=== PATIENT | male | born 1960 | race Caucasian/White ===

== ENCOUNTER 2017-07-04 13:11 | Inpatient (IN) | payer SELFPAY ==
[~2017-07-04] VITALS: Ht 188 cm; Wt 109.8 kg
[2017-07-04] VITALS (7 sets, daily range): BP systolic 136–177; BP diastolic 86–110
[2017-07-04] MEDS ORDERED: XARELTO20 MG ORAL (13:34)
[2017-07-04] MEDS ORDERED: Morphine Sulfate 2mg/ml Inj IVP ONE (13:45)
--- NOTE | 2017-07-04 13:49 | Emergency Room Report ---
History of Present Illness General Chief Complaint: Chest Pain Source: Patient Present Illness HPI 56-year-old male presents with left-sided chest pain, nonradiating, while he was on the plane on flight back to [place] from [place]. No associated shortness of breath, cough, fever chills. States he makes that flight every week for work. Endorses history of "11 PEs" in the past, is compliant with 20 mg Xarelto daily. Also endorses multiple CTA chest. Denies having a chance to follow up with car dropper, but thinks he "has a blood disorder", hasn't had a chance to follow-up due to work. Denies history of diabetes, high blood pressure, CAD, heart attacks in the past. Denies smoking, alcohol, drug use. Allergies: Coded Allergies: No Known Allergies (Unverified , 07/04/17) Patient History Past Medical History: other - PE? Past Surgical History: none Pertinent Family History: none Social History: Denies: smoking, alcohol use, drug use Immunizations: UTD Reviewed Nursing Documentation: PMH: Agreed, PSxH: Agreed Nursing Documentation-PMH Past Medical History: No History, Except For Hx Cardiac Problems: No - PE 2016 Review of Systems All Other Systems: negative except mentioned in HPI Physical Exam Vital Signs Date Time Temp Pulse Resp B/P (MAP) Pulse Ox O2 Delivery O2 Flow Rate FiO2 07/04/17 13:14 97.4 110 24 94 Room Air 97.3 Sp02 EP Interpretation: reviewed, normal General Appearance: normal inspection, well appearing, no apparent distress, alert, GCS 15, non-toxic Head: normocephalic, atraumatic Eyes: bilateral eye PERRL, bilateral eye EOMI ENT: normal ENT inspection, hearing grossly normal, normal pharynx, no angioedema, normal voice, TMs + canals normal, uvula midline, moist mucus membranes Neck: normal inspection, full range of motion, supple, thyroid normal, no meningismus, no bony tend Respiratory: normal inspection, lungs clear, normal breath sounds, no rhonchi, no respiratory distress, no retraction, no accessory muscle use, no wheezing, speaking full sentences, other - Yellowish ecchymoses to left upper chest wall, tender to palpation. Cardiovascular #1: regular rate, rhythm, no edema, no JVD, normal capillary refill Gastrointestinal: normal inspection, normal bowel sounds, non tender, soft, no mass, no peritonitis, non-distended, no guarding, no hernia, no pulsatile mass Genitourinary: no CVA tenderness Musculoskeletal: normal inspection, back normal, normal range of motion, no calf tenderness, pelvis stable, Adina's Sign negative Neurologic: normal inspection, alert, oriented x3, responsive, medical scientific officer III-XII nml as tested, motor strength/tone normal, cerebellar normal, normal gait, speech normal Psychiatric: normal inspection, judgement/insight normal, mood/affect normal, no suicidal/homicidal ideation, no delusions, anxious Skin: normal inspection, normal color, no rash Lymphatic: normal inspection, no adenopathy Medical Decision Making Diagnostic Impression: Primary Impression: Chest pain Qualified Codes: R07.9 - Chest pain, unspecified ER Course Vital signs significant for tachycardia Not hypoxic or tachypneic ECG shows sinus tachycardia, no S1Q3T3 pattern, no right heart strain Questionable compliance on Xarelto Will do labs, troponin to evaluate for ACS: Was given morphine IV for pain control Unfortunately despite the fact the patient has had multiple CTA chest in the past, given the history that he endorsed to me Will need to do additional CTA chest. Endorsed to Dr. Zambrano to follow up labs, CTA chest at 230pm If has recurrent PE will need admission with IV Lovenox and possible placement of IVC filter EKG Diagnostic Results Rate: tachycardiac Rhythm: NSR ST Segments: no acute changes ASA given to the pt in ED: No Rhythm Strip Diag. Results EP Interpretation: yes Rate: 96 Rhythm: NSR, no PVC's, no ectopy Last Vital Signs Date Time Temp Pulse Resp B/P (MAP) Pulse Ox O2 Delivery O2 Flow Rate FiO2 07/04/17 13:26 108 18 Room Air 07/04/17 13:14 97.4 94 97.3 EVI JAIMES M.D. Jul 04, 2017 13:48
[2017-07-04 13:53] LABS: BASOPHILS % (AUTO) 1.1 % (0.0-2.0); EOSINOPHILS % (AUTO) 1.6 % (0.0-3.0); HEMATOCRIT 44.6 % (42.0-52.0); HEMOGLOBIN 15.7 G/DL (14.2-18.0); LYMPHOCYTES % (AUTO) 27.7 % (20.0-45.0); MEAN CORPUSCULAR VOLUME 103 FL (80-99); MONOCYTES % (AUTO) 13.1 % (1.0-10.0); NEUTROPHILS % (AUTO) 56.4 % (45.0-75.0); PLATELET COUNT 353 K/UL (150-450); RED BLOOD COUNT 4.36 M/UL (4.70-6.10); RED CELL DISTRIBUTION WIDTH 15.1 % (11.6-14.8); WHITE BLOOD COUNT 4.5 K/UL (4.8-10.8)
[2017-07-04 14:04] LABS: ANION GAP 12 mmol/L (5-15); BLOOD UREA NITROGEN 12 mg/dL (7-18); CALCIUM 8.9 MG/DL (8.5-10.1); CARBON DIOXIDE 24 MMOL/L (21-32); CHLORIDE 104 MMOL/L (98-107); POTASSIUM 3.8 MMOL/L (3.5-5.1); SODIUM 140 MMOL/L (136-145)
[2017-07-04 14:18] LABS: ALANINE AMINOTRANSFERASE 51 U/L (12-78); ALKALINE PHOSPHATASE 122 U/L (46-116); ASPARTATE AMINO TRANSFERASE 37 U/L (15-37); BILIRUBIN,TOTAL 0.5 MG/DL (0.2-1.0); CKMB 1.7 NG/ML (0.0-3.6); CREATINE KINASE 103 U/L (26-308)
--- NOTE | 2017-07-04 15:21 | Diagnostic Imaging Report ---
Indication: Chest pain Technique: One view of the chest Comparison: none Findings: Patient is rotated to the right. The heart is enlarged. The lungs and pleural spaces are clear. Impression: No acute process Cardiomegaly
--- NOTE | 2017-07-04 15:35 | Diagnostic Imaging Report ---
ndication: Chest pain Technique: IV administration nonionic contrast. Spiral acquisitions obtained from the lung bases to the lung apices. Multiplanar and 3-D reconstructions were generated. Total dose length product 1173.45 mGycm. CTDIvol(s) 38.34 mGy. Dose reduction achieved using automated exposure control Comparison: Reference made to chest radiograph of earlier the same day Findings: There is adequate opacification of the pulmonary arteries. No intraluminal filling defects or other findings to suggest acute pulmonary embolus demonstrated. Normal caliber pulmonary arteries. No evidence of right ventricular dilatation. No evidence of thoracic aortic aneurysm or dissection. Normal branching anatomy of the great neck vessels is noted. The lungs demonstrate bilateral posterior dependent atelectatic changes, particularly at the lung bases. No infiltrates, effusions, congestion, masses, or nodules demonstrated. There is a small posterior medial diaphragmatic defect on the left, but no significant herniation through the defect. The heart is borderline enlarged and there is abundant pericardial fat. No pericardial effusion. There is a small to moderate sliding-type hiatal hernia. Some herniated fat is seen surrounding the herniated gastric fundus. There is minimal dilatation with gas of the mid thoracic esophagus. No mediastinal or hilar mass or adenopathy. The thyroid is unremarkable. No axillary or chest wall mass or adenopathy. There is questionable very slight loss of height of and depression of the superior endplate of the T6 vertebral body. The There is an incompletely united fracture deformity of the anterolateral left fourth rib. There is a fracture deformity of the anterolateral left third rib. Uncertain as to whether acute; shortness of the cortical offset and absence of callus suggests acuity, but absence of the medullary fracture line suggests this could be old. There is an old healed fracture deformity of the anterolateral right fourth rib The included upper abdominal anatomy is unremarkable. Impression: No evidence of acute pulmonary embolus or other acute thoracic vascular pathology Bilateral posterior dependent atelectatic changes, otherwise clear lungs. Borderline cardiomegaly. Abundant pericardial fat, making the heart appear larger than it actually is on chest radiography Small to moderate sliding-type hiatal hernia Equivocal compression fracture deformity of the T6 vertebral body, age indeterminate but likely old if real. Consider MRI for further evaluation at this is considered clinically relevant Acute versus left third rib fracture deformity. Incompletely healed left fourth rib fracture deformity. Old right fourth rib fracture deformity The CT scanner at [facility] is accredited by the [employer] and the scans are performed using protocols designed to limit radiation exposure to as low as reasonably achievable to attain images of sufficient resolution adequate for diagnostic evaluation.
[2017-07-04] MEDS ORDERED: Cyclobenzaprine 10mg Tab ORAL ONE (18:45)
[2017-07-04] MEDS ORDERED: Aspirin Baby 81mg ORAL ONE (18:45)
[2017-07-04] MEDS: Morphine Sulfate 2mg/ml Inj IVP PRN (21:35)
[2017-07-05] MEDS: Morphine Sulfate 2mg/ml Inj IVP PRN ×3 (03:51→13:11)
[2017-07-05 04:00] VITALS: BP 103/64
[2017-07-05 06:57] LABS: BASOPHILS % (AUTO) 1.3 % (0.0-2.0); HEMATOCRIT 36.6 % (42.0-52.0); HEMOGLOBIN 13.2 G/DL (14.2-18.0); LYMPHOCYTES % (AUTO) 27.9 % (20.0-45.0); MEAN CORPUSCULAR VOLUME 102 FL (80-99); MONOCYTES % (AUTO) 16.6 % (1.0-10.0); NEUTROPHILS % (AUTO) 51.2 % (45.0-75.0); PLATELET COUNT 298 K/UL (150-450); RED BLOOD COUNT 3.58 M/UL (4.70-6.10); RED CELL DISTRIBUTION WIDTH 15.1 % (11.6-14.8); WHITE BLOOD COUNT 3.8 K/UL (4.8-10.8)
[2017-07-05 07:01] LABS: ANION GAP 9 mmol/L (5-15); BLOOD UREA NITROGEN 11 mg/dL (7-18); CALCIUM 8.3 MG/DL (8.5-10.1); CARBON DIOXIDE 25 MMOL/L (21-32); CHLORIDE 107 MMOL/L (98-107); CHOLESTEROL 196 MG/DL (< 200); HDL CHOLESTEROL 46 MG/DL (40-60); POTASSIUM 3.5 MMOL/L (3.5-5.1); SODIUM 141 MMOL/L (136-145); TRIGLYCERIDES 159 MG/DL (30-150)
[2017-07-05 08:00] VITALS: BP 130/80
[2017-07-05] MEDS: Xarelto 10mg tab ORAL SCH (09:06)
[2017-07-05] MEDS: HYDROcodone/Acetamin 10/325 tab ORAL PRN ×3 (11:06→20:09)
[2017-07-05 12:00] VITALS: BP 134/79
[2017-07-05 16:00] VITALS: BP 149/105
--- NOTE | 2017-07-05 17:30 | History and Physical ---
History of Present Illness General Date patient seen: Jul 05, 2017 Reason for Hospitalization: Chest Pain Present Illness HPI This is a 56-year-old male with PMH for PE who presented to the ED c/o left- sided chest pain, nonradiating, while he was on the plane on flight back to [place] from [place]. No associated shortness of breath, cough, fever, or chills. States he takes that flight every week for work. Endorses history of "11 PEs" in the past. He is on anticoagulation and compliant with Xarelto 20 mg daily. He was admitted for further care. Allergies: Coded Allergies: No Known Allergies (Unverified , 07/04/17) Medication History Miscellaneous Medications Rivaroxaban (Xarelto), 20 MG ORAL, (Reported) Patient History History Provided By: Patient Healthcare decision maker Resuscitation status Full Code Advanced Directive on File Past Medical/Surgical History Past Medical/Surgical History: (1) Pulmonary embolism Review of Systems All Other Systems: negative except mentioned in HPI Physical Exam General Appearance: WD/WN, no apparent distress HEENT: normocephalic, atraumatic Respiratory/Chest: lungs clear Cardiovascular/Chest: normal rate, regular rhythm, no JVD Abdomen: non tender Extremities: no edema Neurologic: alert, oriented x 3 Last 24 Hour Vital Signs Date Time Temp Pulse Resp B/P (MAP) Pulse Ox O2 Delivery O2 Flow Rate FiO2 07/05/17 16:31 97.5 07/05/17 15:32 97.5 07/05/17 13:42 97.5 07/05/17 13:11 97.5 07/05/17 12:00 97.9 61 18 134/79 96 Room Air 97.9 07/05/17 12:00 65 07/05/17 11:06 97.5 07/05/17 09:07 97.5 07/05/17 08:00 97.7 18 130/80 95 Room Air 97.7 07/05/17 08:00 60 07/05/17 04:00 97.5 75 20 103/64 95 Room Air 97.5 07/05/17 04:00 61 07/05/17 00:00 60 07/04/17 20:38 66 07/04/17 20:20 97.9 75 20 156/102 98 Room Air 97.9 07/04/17 20:20 36.14175 75 20 156/102 98 Room Air 208.2 07/04/17 20:00 70 22 136/86 98 Room Air 07/04/17 19:41 98.0 07/04/17 18:59 98.0 75 22 153/107 98 Room Air 98.0 Intake and Output 07/04/17 07/05/17 19:00 07:00 Intake Total 0 ml Balance 0 ml Intake Oral 0 ml # Voids 2 Laboratory Tests Test 07/04/17 21:23 07/05/17 05:54 Troponin I 0.000 ng/mL (0.000-0.056) 0.000 ng/mL (0.000-0.056) White Blood Count 3.8 K/UL (4.8-10.8) L Red Blood Count 3.58 M/UL (4.70-6.10) L Hemoglobin 13.2 G/DL (14.2-18.0) L Hematocrit 36.6 % (42.0-52.0) L Mean Corpuscular Volume 102 FL (80-99) H Mean Corpuscular Hemoglobin 36.9 PG (27.0-31.0) H Mean Corpuscular Hemoglobin Concent 36.0 G/DL (32.0-36.0) Red Cell Distribution Width 15.1 % (11.6-14.8) H Platelet Count 298 K/UL (150-450) Mean Platelet Volume 5.5 FL (6.5-10.1) L Neutrophils (%) (Auto) 51.2 % (45.0-75.0) Lymphocytes (%) (Auto) 27.9 % (20.0-45.0) Monocytes (%) (Auto) 16.6 % (1.0-10.0) H Eosinophils (%) (Auto) 3.0 % (0.0-3.0) Basophils (%) (Auto) 1.3 % (0.0-2.0) Sodium Level 141 MMOL/L (136-145) Potassium Level 3.5 MMOL/L (3.5-5.1) Chloride Level 107 MMOL/L (98-107) Carbon Dioxide Level 25 MMOL/L (21-32) Anion Gap 9 mmol/L (5-15) Blood Urea Nitrogen 11 mg/dL (7-18) Creatinine 1.0 MG/DL (0.55-1.30) Estimat Glomerular Filtration Rate > 60 mL/min (>60) Glucose Level 106 MG/DL (74-106) Calcium Level 8.3 MG/DL (8.5-10.1) L Triglycerides Level 159 MG/DL (30-150) H Cholesterol Level 196 MG/DL (< 200) LDL Cholesterol 130 mg/dL (<100) H HDL Cholesterol 46 MG/DL (40-60) Cholesterol/HDL Ratio 4.3 (3.3-4.4) Height (Feet): 6 Height (Inches): 2.00 Weight (Pounds): 242 Medications Current Medications Medications (Trade) Dose Ordered Sig/Lino Route PRN Reason Start Time Stop Time Status Last Admin Dose Admin Acetaminophen (Tylenol) 650 mg Q4H PRN ORAL Mild Pain (Pain Scale 1-3) 07/04/17 21:15 08/03/17 21:14 Acetaminophen/ Hydrocodone Bitart ([place] 10/325) 1 tab Q4H PRN ORAL FOR MODERATE PAIN 07/04/17 21:15 07/11/17 21:14 07/05/17 15:32 Al Hydroxide/Mg Hydroxide (Mylanta) 30 ml QIDPRN PRN ORAL HEARTBURN 07/05/17 16:30 08/04/17 16:29 07/05/17 16:44 Dextrose (Dextrose 50%) STAT PRN IV Hypoglycemia 07/04/17 21:15 08/03/17 21:14 Morphine Sulfate (Morphine Sulfate) 3 mg Q4H PRN IVP Severe Pain (Pain Scale 7-10) 07/05/17 16:30 07/12/17 16:29 Ondansetron HCl (Zofran) 4 mg Q6H PRN IVP Nausea & Vomiting 07/04/17 21:15 08/03/17 21:14 07/04/17 21:36 Pantoprazole (Protonix) 40 mg Q12HR ORAL 07/05/17 17:00 08/04/17 16:59 07/05/17 16:44 Rivaroxaban (Xarelto) 20 mg DAILY ORAL 07/05/17 09:00 08/04/17 08:59 07/05/17 09:06 Assessment/Plan Problem List: (1) Chest pain ICD Codes: R07.9 - Chest pain, unspecified SNOMED: 66347375 (2) History of pulmonary embolism ICD Codes: Z86.711 - Personal history of pulmonary embolism SNOMED: 020968447 Assessment/Plan cardio eval. peytone Pebbles. monitor labs. PATRICE VILLEGAS Jul 05, 2017 17:30
--- NOTE | 2017-07-05 17:56 | Cardiac Electrophysiology PN ---
Subjective Subjective Cardiology consult dictated [id number] Objective Last 24 Hour Vital Signs Date Time Temp Pulse Resp B/P (MAP) Pulse Ox O2 Delivery O2 Flow Rate FiO2 07/05/17 16:31 97.5 07/05/17 16:00 62 07/05/17 16:00 98.1 87 18 149/105 96 Room Air 98.1 07/05/17 15:32 97.5 07/05/17 13:42 97.5 07/05/17 13:11 97.5 07/05/17 12:00 97.9 61 18 134/79 96 Room Air 97.9 07/05/17 12:00 65 07/05/17 11:06 97.5 07/05/17 09:07 97.5 07/05/17 08:00 97.7 18 130/80 95 Room Air 97.7 07/05/17 08:00 60 07/05/17 04:00 97.5 75 20 103/64 95 Room Air 97.5 07/05/17 04:00 61 07/05/17 00:00 60 07/04/17 20:38 66 07/04/17 20:20 97.9 75 20 156/102 98 Room Air 97.9 07/04/17 20:20 36.81832 75 20 156/102 98 Room Air 208.2 07/04/17 20:00 70 22 136/86 98 Room Air 07/04/17 19:41 98.0 07/04/17 18:59 98.0 75 22 153/107 98 Room Air 98.0 Intake and Output 07/04/17 07/05/17 19:00 07:00 Intake Total 0 ml Balance 0 ml Intake Oral 0 ml # Voids 2 Laboratory Tests Test 07/04/17 21:23 07/05/17 05:54 Troponin I 0.000 ng/mL (0.000-0.056) 0.000 ng/mL (0.000-0.056) White Blood Count 3.8 K/UL (4.8-10.8) L Red Blood Count 3.58 M/UL (4.70-6.10) L Hemoglobin 13.2 G/DL (14.2-18.0) L Hematocrit 36.6 % (42.0-52.0) L Mean Corpuscular Volume 102 FL (80-99) H Mean Corpuscular Hemoglobin 36.9 PG (27.0-31.0) H Mean Corpuscular Hemoglobin Concent 36.0 G/DL (32.0-36.0) Red Cell Distribution Width 15.1 % (11.6-14.8) H Platelet Count 298 K/UL (150-450) Mean Platelet Volume 5.5 FL (6.5-10.1) L Neutrophils (%) (Auto) 51.2 % (45.0-75.0) Lymphocytes (%) (Auto) 27.9 % (20.0-45.0) Monocytes (%) (Auto) 16.6 % (1.0-10.0) H Eosinophils (%) (Auto) 3.0 % (0.0-3.0) Basophils (%) (Auto) 1.3 % (0.0-2.0) Sodium Level 141 MMOL/L (136-145) Potassium Level 3.5 MMOL/L (3.5-5.1) Chloride Level 107 MMOL/L (98-107) Carbon Dioxide Level 25 MMOL/L (21-32) Anion Gap 9 mmol/L (5-15) Blood Urea Nitrogen 11 mg/dL (7-18) Creatinine 1.0 MG/DL (0.55-1.30) Estimat Glomerular Filtration Rate > 60 mL/min (>60) Glucose Level 106 MG/DL (74-106) Calcium Level 8.3 MG/DL (8.5-10.1) L Triglycerides Level 159 MG/DL (30-150) H Cholesterol Level 196 MG/DL (< 200) LDL Cholesterol 130 mg/dL (<100) H HDL Cholesterol 46 MG/DL (40-60) Cholesterol/HDL Ratio 4.3 (3.3-4.4) LUZ MOSLEY Jul 05, 2017 17:56
[2017-07-05] MEDS ORDERED: Lexiscan 0.4mg/5ml syringe IV PRN (18:00)
[2017-07-05] MEDS: Morphine Sulfate 4mg/ml Inj IVP PRN ×2 (18:03→22:27)
[2017-07-05 20:00] VITALS: BP 162/110
[2017-07-05] MEDS ORDERED: Zolpidem 5mg tab ORAL PRN (21:45)
--- NOTE | 2017-07-05 23:30 | Consultation ---
DATE OF CONSULTATION: 07/05/2017 PULMONARY CONSULTATION CONSULTING PHYSICIAN: Marbin Almazan M.D. HISTORY OF PRESENT ILLNESS: This is a very pleasant 56-year-old male with a history of previous pulmonary embolism. He states that he has had multiple pulmonary embolism and he has them every time he travels. He travels a lot for work. He states he had been to [address] [place] [address] recently, but he was again found to have a PE. He was admitted overnight with a diagnosis of possible recurrent PE. The patient has flight; however, his yesterday did not show any evidence of acute pulmonary embolism. At this time, the patient states he is feeling better, although he still has pain. PAST MEDICAL HISTORY: Pulmonary embolism. MEDICATIONS: Home medications, Xarelto. REVIEW OF SYSTEMS: The patient denies any headaches, hematemesis, melena, or hematochezia. PHYSICAL EXAMINATION: GENERAL: Reveals a 56-year-old male. HEENT: Unremarkable. LUNGS: Breath sounds clear bilaterally. ABDOMEN: Soft. NEUROLOGIC: Nonfocal. IMPRESSION: 1. Chest pain, suspicious for pulmonary embolism. 2. History of previous recurrent pulmonary embolism. DISCUSSION: The patient at this time is saturating normally and is only mildly tachycardic. to be discharged home with resumption of Xarelto and I also advised him to continue following up with his stock letterer in [place] and consideration of low-dose Coumadin every time he travels. Marbin Almazan M.D. DR: MAGGIE JOB#: [id number] CC:
[2017-07-06] VITALS: BP 158/107
[2017-07-06] MEDS: HYDROcodone/Acetamin 10/325 tab ORAL PRN ×3 (01:04→09:38)
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
[2017-07-06] MEDS: Morphine Sulfate 4mg/ml Inj IVP PRN ×2 (02:30→07:38)
[2017-07-06 04:00] VITALS: BP 135/91
[2017-07-06] MEDS: Xarelto 10mg tab ORAL SCH (08:37)
[2017-07-06 08:59] VITALS: BP 149/109
--- NOTE | 2017-07-07 13:03 | Discharge Summary ---
Discharge Summary Hospital Course Date of Admission Jul 04, 2017 at 19:25 Date of Discharge Jul 06, 2017 at 10:00 Admitting Diagnosis chest pain HPI Lobito Jackson is a 56 year old male who was admitted on Jul 04, 2017 at 19 :25 for Chest Pain Consultations cardiology - Dr. Hector. Pulmonary - Dr. Almazan. Hospital Course He was admitted to telemetry bed. He was scheduled for stress test on Friday morning. He refused to stay in house til Friday. He only wanted an RX for pain medication to go home with. When endorsed to him by the RN that a pain medication RX would not be given to hime, .he then left AMA. Discharge Condition Upon Discharge: stable Discharge Disposition Patient left AMA. Discharge Diagnoses: (1) History of pulmonary embolism (2) Chest pain PATRICE VILLEGAS Jul 07, 2017 13:03
--- NOTE | 2017-07-08 18:49 | Cardiology Report ---
APPROVED REPORT EKG Measurement Heart [id number] [place] [id number] Sinus tachycardia Left axis deviation Abnormal ECG
== END 2017-07-06 10:00 | disposition left against medical advice (07) | DRG 313 ==
LOC: EMR 14:02 → EDBEDREQ 18:44 → 2E 19:25
DX: R07.9 Chest pain, unspecified (principal); I10 Essential (primary) hypertension; K44.9 Diaphragmatic hernia without obstruction or gangrene; Z86.718 Personal history of other venous thrombosis and embolism; Z86.711 Personal history of pulmonary embolism; Z79.01 Long term (current) use of anticoagulants; R00.0 Tachycardia, unspecified
CPT/HCPCS: 36415; 71045; 71275; 80048; 80053; 80061; 82550; 82553; 84484; 85025; 85379; 85730; 93005; 99285; J2405

== ENCOUNTER 2017-07-13 12:57 | Inpatient (IN) | payer SELFPAY ==
[~2017-07-13] VITALS: Ht 193 cm; Wt 108.9 kg
[~2017-07-13 12:57] MED LIST: XARELTO20 MG ORAL
[2017-07-13 13:17] VITALS: BP 175/98
--- NOTE | 2017-07-13 13:26 | Emergency Room Report ---
History of Present Illness General Chief Complaint: Chest Pain Source: Patient Present Illness HPI Patient's 56-year-old male brought in by self after increased chest discomfort. Patient reports having increased left-sided chest pain. He states that he had no recent trauma. Patient states that he had multiple history of pulmonary embolism in the past and takes Xarelto. He reports pain with worse with deep breaths. He denies any fever.Reports recent airplane travel. Patient recently been hospitalized. Patient denied any fever. He reported having intermittent cough. He denies any leg pain or swelling. Patient states he does not have prior history of hypertension.He reports intermittent alcohol use. Allergies: Coded Allergies: No Known Allergies (Unverified , 07/04/17) Patient History Past Medical History: see triage record Reviewed Nursing Documentation: PMH: Agreed; PSxH: Agreed Nursing Documentation-PMH Past Medical History: No History, Except For Hx Cardiac Problems: Yes - Pulmonary Embolism 7-8 months ago Review of Systems All Other Systems: negative except mentioned in HPI Physical Exam Vital Signs Date Time Temp Pulse Resp B/P (MAP) Pulse Ox O2 Delivery O2 Flow Rate FiO2 07/13/17 13:07 98.2 112 22 174/138 95 Room Air 98.2 Sp02 EP Interpretation: reviewed, normal General Appearance: normal inspection, well appearing, no apparent distress, alert, GCS 15 Head: atraumatic ENT: normal ENT inspection, hearing grossly normal, normal voice Neck: normal inspection, full range of motion, supple, no bony tend Respiratory: normal inspection, lungs clear, normal breath sounds, no respiratory distress, no retraction, no wheezing Cardiovascular #1: regular rate, rhythm, no edema Gastrointestinal: normal inspection, normal bowel sounds, non tender, soft, no guarding, no hernia Genitourinary: no CVA tenderness Musculoskeletal: normal inspection, back normal, normal range of motion Neurologic: normal inspection, alert, oriented x3, responsive, fly winder III-XII nml as tested, speech normal Psychiatric: normal inspection, judgement/insight normal, mood/affect normal Skin: normal inspection, normal color, no rash Medical Decision Making Diagnostic Impression: Primary Impression: Hypertension ER Course Patient presented for chest pain.Differential diagnosis included but was not limited to acute coronary syndrome, pulmonary embolism, pneumonia, aortic dissection, shingles, pneumothorax, aortic dissection, esophageal rupture, pericarditis. Because of complexity of patient's case laboratory testing and imaging studies were ordered.Laboratory studies were unremarkable. Patient was noted to have reported prior history of pulmonary embolism. CT of chest was performed last week and showed no evidence of PE and I do not feel repeat study is indicated at this time. The patient was also noted to have not healed rib fractures to the left side of his chest as well as cardiomegaly. Patient was discussed with Dr. Kel Mclaughlin for inpatient management. Labs Test 07/13/17 13:35 07/13/17 14:35 07/14/17 12:47 White Blood Count 5.5 K/UL (4.8-10.8) Red Blood Count 4.42 M/UL (4.70-6.10) Hemoglobin 15.6 G/DL (14.2-18.0) Hematocrit 44.5 % (42.0-52.0) Mean Corpuscular Volume 101 FL (80-99) Mean Corpuscular Hemoglobin 35.3 PG (27.0-31.0) Mean Corpuscular Hemoglobin Concent 35.0 G/DL (32.0-36.0) Red Cell Distribution Width 14.4 % (11.6-14.8) Platelet Count 480 K/UL (150-450) Mean Platelet Volume 5.4 FL (6.5-10.1) Neutrophils (%) (Auto) 58.7 % (45.0-75.0) Lymphocytes (%) (Auto) 31.6 % (20.0-45.0) Monocytes (%) (Auto) 7.8 % (1.0-10.0) Eosinophils (%) (Auto) 0.6 % (0.0-3.0) Basophils (%) (Auto) 1.2 % (0.0-2.0) D-Dimer 1.21 mg/L FEU (0.00-0.49) Sodium Level 142 MMOL/L (136-145) Potassium Level 3.7 MMOL/L (3.5-5.1) Chloride Level 104 MMOL/L (98-107) Carbon Dioxide Level 22 MMOL/L (21-32) Anion Gap 16 mmol/L (5-15) Blood Urea Nitrogen 8 mg/dL (7-18) Creatinine 0.9 MG/DL (0.55-1.30) Estimat Glomerular Filtration Rate > 60 mL/min (>60) Glucose Level 91 MG/DL (74-106) Calcium Level 8.8 MG/DL (8.5-10.1) Total Bilirubin 0.7 MG/DL (0.2-1.0) Aspartate Amino Transf (AST/SGOT) 53 U/L (15-37) Alanine Aminotransferase (ALT/SGPT) 43 U/L (12-78) Alkaline Phosphatase 108 U/L (46-116) Total Creatine Kinase 157 U/L (26-308) Creatine Kinase MB 2.2 NG/ML (0.0-3.6) Creatine Kinase MB Relative Index 1.4 C-Reactive Protein, Quantitative < 0.4 mg/dL (0.00-0.90) Pro-B-Type Natriuretic Peptide 57 pg/mL (0-125) Total Protein 7.5 G/DL (6.4-8.2) Albumin 3.9 G/DL (3.4-5.0) Globulin 3.6 g/dL Albumin/Globulin Ratio 1.1 (1.0-2.7) Lipase 395 U/L (73-393) Urine Color Pale yellow Urine Appearance Clear Urine pH 5 (4.5-8.0) Urine Specific [place] 1.020 (1.005-1.035) Urine Protein Negative (NEGATIVE) Urine Glucose (UA) Negative (NEGATIVE) Urine Ketones 1+ (NEGATIVE) Urine Occult Blood Negative (NEGATIVE) Urine Nitrite Negative (NEGATIVE) Urine Bilirubin Negative (NEGATIVE) Urine Urobilinogen Normal MG/DL (0.0-1.0) Urine Leukocyte Esterase Negative (NEGATIVE) Urine Opiates Screen Negative (NEGATIVE) Urine Barbiturates Screen Negative (NEGATIVE) Phencyclidine (PCP) Screen Negative (NEGATIVE) Urine Amphetamines Screen Negative (NEGATIVE) Urine Benzodiazepines Screen Negative (NEGATIVE) Urine Cocaine Screen Negative (NEGATIVE) Urine Marijuana (THC) Screen Negative (NEGATIVE) Troponin I 0.000 ng/mL (0.000-0.056) EKG Diagnostic Results Rate: normal Rhythm: NSR ST Segments: no acute changes Last Vital Signs Date Time Temp Pulse Resp B/P (MAP) Pulse Ox O2 Delivery O2 Flow Rate FiO2 07/13/17 13:17 98.2 111 19 175/98 98 Room Air 98.2 Status: unchanged Disposition: ADMITTED INPATIENT Condition: Allen Todd Jul 13, 2017 13:26
[2017-07-13] MEDS ORDERED: Norco 5mg/325mg tab ORAL ONE (13:30)
[2017-07-13 13:47] LABS: BASOPHILS % (AUTO) 1.2 % (0.0-2.0); EOSINOPHILS % (AUTO) 0.6 % (0.0-3.0); HEMATOCRIT 44.5 % (42.0-52.0); HEMOGLOBIN 15.6 G/DL (14.2-18.0); LYMPHOCYTES % (AUTO) 31.6 % (20.0-45.0); MEAN CORPUSCULAR VOLUME 101 FL (80-99); MONOCYTES % (AUTO) 7.8 % (1.0-10.0); NEUTROPHILS % (AUTO) 58.7 % (45.0-75.0); PLATELET COUNT 480 K/UL (150-450); RED BLOOD COUNT 4.42 M/UL (4.70-6.10); RED CELL DISTRIBUTION WIDTH 14.4 % (11.6-14.8); WHITE BLOOD COUNT 5.5 K/UL (4.8-10.8)
[2017-07-13 14:03] LABS: ANION GAP 16 mmol/L (5-15); BLOOD UREA NITROGEN 8 mg/dL (7-18); CALCIUM 8.8 MG/DL (8.5-10.1); CARBON DIOXIDE 22 MMOL/L (21-32); CHLORIDE 104 MMOL/L (98-107); CREATININE 0.9 MG/DL (0.55-1.30); POTASSIUM 3.7 MMOL/L (3.5-5.1); SODIUM 142 MMOL/L (136-145)
[2017-07-13 14:12] LABS: ALANINE AMINOTRANSFERASE 43 U/L (12-78); ALBUMIN 3.9 G/DL (3.4-5.0); ALBUMIN/GLOBULIN RATIO 1.1 (1.0-2.7); ALKALINE PHOSPHATASE 108 U/L (46-116); ASPARTATE AMINO TRANSFERASE 53 U/L (15-37); BILIRUBIN,TOTAL 0.7 MG/DL (0.2-1.0); CKMB 2.2 NG/ML (0.0-3.6); CREATINE KINASE 157 U/L (26-308)
[2017-07-13 14:53] LABS: APPEARANCE,URINE CLEAR; BILIRUBIN, URINE NEGATIVE (NEGATIVE); COLOR,URINE PALE YELLOW; GLUCOSE, URINE (UA) NEGATIVE (NEGATIVE); KETONES,URINE 1+ (NEGATIVE); LEUKOCYTE ESTERASE ,URINE NEGATIVE (NEGATIVE); NITRITE,URINE NEGATIVE (NEGATIVE); PH,URINE 5 (4.5-8.0); PROTEIN,URINE NEGATIVE (NEGATIVE); UROBILINOGEN,URINE NORMAL MG/DL (0.0-1.0)
[2017-07-13 15:07] VITALS: BP 185/112
[2017-07-13] MEDS ORDERED: LORazepam 1mg tab ORAL ONE (15:15)
[2017-07-13 15:16] VITALS: BP 166/85
[2017-07-13] MEDS ORDERED: Morphine Sulfate 4mg/ml Inj IVP ONE (16:45)
[2017-07-13 17:01] VITALS: BP 158/84
[2017-07-13 20:00] VITALS: BP 128/103
[2017-07-13] MEDS: HYDROmorphone 1mg/ml Carpuject IVP PRN (22:54)
[2017-07-13] MEDS: Zolpidem 5mg tab ORAL PRN (22:54)
[2017-07-14] VITALS: BP 142/102
[2017-07-14] MEDS: HYDROmorphone 1mg/ml Carpuject IVP PRN ×6 (02:54→23:48)
[2017-07-14 04:00] VITALS: BP 164/94
[2017-07-14 08:00] VITALS: BP 151/110
[2017-07-14] MEDS ORDERED: cloNIDine 0.2mg Tab ORAL PRN (10:45)
[2017-07-14 12:00] VITALS: BP 154/107
--- NOTE | 2017-07-14 12:25 | Diagnostic Imaging Report ---
Indication: Shortness of breath Technique: One view of the chest Comparison: 07/04/2017 Findings: There is some atelectasis at the right lung base. Lungs and pleural spaces are otherwise clear. Inspiration is suboptimal. Size is probably borderline enlarged. Findings are unchanged Impression: Unchanged, over 9 days, findings as above.
[2017-07-14 16:00] VITALS: BP 150/98
--- NOTE | 2017-07-14 16:22 | Cardiac Electrophysiology PN ---
Subjective Subjective [id number] Objective Last 24 Hour Vital Signs Date Time Temp Pulse Resp B/P (MAP) Pulse Ox O2 Delivery O2 Flow Rate FiO2 07/14/17 15:36 98.2 07/14/17 15:06 98.2 07/14/17 12:00 100 07/14/17 12:00 97.9 18 154/107 99 Room Air 97.9 07/14/17 11:35 98.2 07/14/17 08:00 98.2 69 18 151/110 92 Room Air 98.2 07/14/17 07:58 65 07/14/17 07:14 97.7 07/14/17 04:00 97.7 89 20 164/94 94 Room Air 97.7 07/14/17 00:00 97.7 78 20 142/102 94 Room Air 97.7 07/14/17 00:00 69 07/13/17 20:00 98.2 86 20 128/103 95 Room Air 98.2 07/13/17 20:00 83 07/13/17 17:45 208.4 86 19 158/84 100 Room Air 208.4 07/13/17 17:26 208.4 07/13/17 17:01 208.4 86 19 158/84 100 Room Air 208.4 07/13/17 16:56 98.0 Intake and Output 07/13/17 07/14/17 19:00 07:00 Intake Total 100 ml 500 ml Balance 100 ml 500 ml Intake Oral 100 ml 500 ml Laboratory Tests Test 07/14/17 04:15 07/14/17 12:47 Troponin I 0.006 ng/mL (0.000-0.056) 0.000 ng/mL (0.000-0.056) Qeu Hector MD Jul 14, 2017 16:22
[2017-07-14] MEDS ORDERED: Lexiscan 0.4mg/5ml syringe IV PRN (16:30)
--- NOTE | 2017-07-14 18:20 | Cardiology Report ---
APPROVED REPORT EXAM: Two-dimensional and M-mode echocardiogram with Doppler and color Doppler. INDICATION Chest Pain M-Mode DIMENSIONS IVSd2.1 (0.7-1.1cm)Left Atrium (MM)4.6 (1.6-4.0cm) LVDd6.2 (3.5-5.6cm)Aortic Root4.8 (2.0-3.7cm) PWd2.2 (0.7-1.1cm)Aortic Cusp Exc.2.7 (1.5-2.0cm) LVDs4.2 (2.5-4.0cm) PWs2.4 cm Technically difficult study due to poor acoustical windows. Normal left ventricular chamber size, systolic function and wall motion to extent visualized. Left ventricular ejection fraction estimated to be 60-65 %. Study quality precludes accurate assessment of regional wall motion. Mild left ventricular hypertrophy. No evidence of pericardial effusion. Moderate bi-atrial enlargement. Right ventricular chamber size is within normal limits. Focal aortic valve sclerosis with adequate cusp excursion. Thickened mitral valve leaflets with normal excursion. Mitral annulus and aortic root calcification. Pulmonic valve not well visualized. Normal tricuspid valve structure. IVC at normal size with physiologic collapse. A color flow and spectral Doppler study was performed and revealed: Mild aortic regurgitation. Trace mitral regurgitation. Mitral diastolic velocities suggest reduced left ventricular relaxation c/w mild LV diastolic dysfunction (Grade I ). Trace tricuspid regurgitation. Tricuspid systolic velocities suggests peak right ventricular systolic pressure of 15 mmHg.
[2017-07-14] MEDS: Zolpidem 5mg tab ORAL PRN (23:15)
--- NOTE | 2017-07-15 00:16 | Consultation ---
DATE OF CONSULTATION: 07/14/2017 CARDIOLOGY CONSULTATION CONSULTING PHYSICIAN: Que Hector M.D. REFERRING PHYSICIAN: Kel Mclaughlin M.D. REASON FOR CONSULTATION: Chest pain. HISTORY OF PRESENT ILLNESS: The patient is a very pleasant 56-year-old gentleman, who came to the emergency room for increasing chest discomfort. The patient suddenly had left-sided chest pain without any trauma. The patient has a history of pulmonary embolism in the past and he is taking Xarelto. The pain gets worse with deep breathing. The patient had a recent travel and has recently been hospitalized. The patient denies any prior myocardial infarction or coronary artery disease or hypertension. PAST MEDICAL HISTORY: Includes pulmonary embolism seven or eight months ago. MEDICATION AT HOME: Include Xarelto. FAMILY HISTORY: Noncontributory. REVIEW OF SYSTEMS: Negative other than what is mentioned in the history of present illness. PHYSICAL EXAMINATION: VITAL SIGNS: Show blood pressure of 154/107, pulse is 90, respirations 18, and he is afebrile. HEAD AND NECK: Showed no JVD. LUNGS: Clear. CARDIOVASCULAR: Shows regular S1 and S2 with no gallop or murmur. ABDOMEN: Soft. EXTREMITIES: No pitting edema. DIAGNOSTIC DATA: EKG showed normal sinus rhythm with left axis deviation. His echocardiogram showed normal left ventricular systolic function with ejection fraction of 60% to 65%. ASSESSMENT AND PLAN: 1. Atypical chest pain. The patient was already ruled out for myocardial infarction. His echocardiogram showed normal left ventricular systolic function and EKG showed no acute ST-T wave abnormality. We will schedule the patient for a nuclear stress test for further evaluation and management. 2. History of pulmonary embolism in the past. The chest x-ray showed some atelectasis in the right base. 3. Hypertension. The patient is on p.r.n. clonidine. I will add lisinopril 10 mg b.i.d. to the medical regimen. It is of note that the patient's D-dimer was mildly elevated. The emergency room physician notes showed that the CT of the chest was from the last week and showed no evidence of pulmonary embolism and so it was not repeated. The CT also showed a healed rib fracture on the left side. Thank you very much, Dr. Mclaughlin, for allowing me to participate in the care of this patient. Please do not hesitate to contact me for any questions regarding my evaluation. Que Hector M.D. DR: TAM JOB#: [id number] CC:
[2017-07-15] MEDS: HYDROmorphone 1mg/ml Carpuject IVP PRN ×3 (04:01→11:51)
[2017-07-15 08:00] VITALS: BP 137/98
--- NOTE | 2017-07-15 08:51 | Consultation ---
Consult Note Consult Note DATE OF CONSULTATION: 07/15/2017 PULMONARY CONSULTATION CONSULTING PHYSICIAN: Marbin Almazan M.D. REFERRING PHYSICIAN: Kel Mclaughlin M.D. REASON FOR CONSULTATION: Chest pain. Recurrent pulmonary embolism. HISTORY OF PRESENT ILLNESS: The patient is a very pleasant 56-year-old gentleman, who came to the emergency room for increasing chest discomfort. The patient suddenly had left-sided chest pain without any trauma. The patient has a history of pulmonary embolism in the past and he is taking Xarelto. The pain gets worse with deep breathing. The patient had a recent travel and has recently been hospitalized. The patient denies any prior myocardial infarction or coronary artery disease or hypertension. He states he also rib fractures and DVT. PAST MEDICAL HISTORY: Includes pulmonary embolism seven or eight months ago. MEDICATION AT HOME: Include Xarelto. Dose increased to 40 mg PO daily. FAMILY HISTORY: Noncontributory. REVIEW OF SYSTEMS: Negative other than what is mentioned in the history of present illness. PHYSICAL EXAMINATION: VITAL SIGNS: Show blood pressure of 154/107, pulse is 90, respirations 18, and he is afebrile. HEAD AND NECK: Showed no JVD. LUNGS: Clear. CARDIOVASCULAR: Shows regular S1 and S2 with no gallop or murmur. ABDOMEN: Soft. EXTREMITIES: No pitting edema. DIAGNOSTIC DATA: EKG showed normal sinus rhythm with left axis deviation. His echocardiogram showed normal left ventricular systolic function with ejection fraction of 60% to 65%. ASSESSMENT AND PLAN: 1. Atypical chest pain. The patient was already ruled out for myocardial infarction. His echocardiogram showed normal left ventricular systolic function and EKG showed no acute ST-T wave abnormality. Plans noted for nuclear stress test for further evaluation and management. 2. History of pulmonary embolism in the past. The chest x-ray showed some atelectasis in the right base. He is on full anticoagulation. 3. Hypertension. The patient is on p.r.n. clonidine. Added lisinopril 10 mg b.i.d. to the medical regimen. CT of the chest was from the last week and showed no evidence of pulmonary embolism and so it was not repeated. The CT also showed a healed rib fracture on the left side. No new recommendations from pulmonary point of view.Patient will follow up with his neon sign erector as outpt. Ryann Bain Omar Syed MD Jul 15, 2017 08:51
[2017-07-15] MEDS ORDERED: Xarelto 10mg tab ORAL SCH (09:00)
[2017-07-15 11:26] VITALS: BP 132/100
[2017-07-15] MEDS: Morphine Sulfate 4mg/ml Inj IVP PRN ×3 (15:26→23:38)
[2017-07-15 16:00] VITALS: BP 127/84
--- NOTE | 2017-07-15 16:07 | Cardiac Electrophysiology PN ---
Assessment/Plan Assessment/Plan 1. Atypical chest pain. The patient was already ruled out for myocardial infarction. His echocardiogram showed normal left ventricular systolic function and EKG showed no acute ST-T wave abnormality. Had Lexiscan nuclear stress test today 2. History of pulmonary embolism in the past. On Xarelto 20 daily tht was increased by Dr Almazan to 40 daily. 3. Hypertension. The patient is on p.r.n. clonidine. I will add lisinopril 10 mg b.i.d. to the medical regimen. The emergency room physician notes showed that the CT of the chest was from the last week and showed no evidence of pulmonary embolism and so it was not repeated. The CT also showed a healed rib fracture on the left side. KRISTEN RN Subjective Subjective Comfortable in NAD. Objective Last 24 Hour Vital Signs Date Time Temp Pulse Resp B/P (MAP) Pulse Ox O2 Delivery O2 Flow Rate FiO2 07/15/17 12:00 76 07/15/17 11:26 97.3 60 18 132/100 96 Room Air 97.3 07/15/17 08:00 65 07/15/17 08:00 98.1 80 18 137/98 95 Room Air 98.1 07/15/17 04:31 97.9 07/15/17 00:00 74 07/14/17 21:51 187/128 07/14/17 20:00 67 Intake and Output 07/14/17 07/15/17 19:00 07:00 Intake Total 232 ml 116 ml Balance 232 ml 116 ml Intake Oral 232 ml 116 ml # Voids 2 2 Laboratory Tests Test 07/14/17 19:40 07/15/17 04:15 07/15/17 11:44 Troponin I 0.001 ng/mL (0.000-0.056) 0.000 ng/mL (0.000-0.056) 0.000 ng/mL (0.000-0.056) Objective HEAD AND NECK: Showed no JVD. LUNGS: Clear. CARDIOVASCULAR: Shows regular S1 and S2 with no gallop or murmur. ABDOMEN: Soft. EXTREMITIES: No pitting edema. Que Hector MD Jul 15, 2017 16:07
[2017-07-15] MEDS: Lisinopril 10mg tab ORAL SCH (16:23)
--- NOTE | 2017-07-15 17:16 | Diagnostic Imaging Report ---
Indications: Chest pain Technique: Single day single isotope protocol utilized. Initially, resting images obtained using IV administration 9.2 millicuries 99M technetium Myoview. Subsequently, patient underwent lexiscan stress testing. See cardiology report for details. During adenosine infusion, IV administration 30.9 mCi 99 M technetium Myoview. SPECT and planar images obtained. SPECT images gated to 8 phases of the cardiac cycle were also obtained, and reformatted into cine images for evaluation of ejection fraction. Comparison: none Findings: Per cardiology report, patient experienced shortness of breath, sweating, flushing, and chest pain. Per cardiology report, resting EKG demonstrates normal sinus rhythm. No ST changes were observed during the infusion. Imaging demonstrates decreased perfusion on the poststress images in the inferior wall extending to some extent into the lateral wall. This appears fixed on the resting images. Normal cardiac chambers. Calculated post stress ejection fraction 60%. No focal wall motion abnormality demonstrated Impression: Nonischemic clinical response to pharmacologic stress, per cardiology report Nonischemic electrocardiographic response to pharmacologic stress, per cardiology report Apparent fixed inferior and inferolateral wall decreased perfusion. Suspect artifactual due to soft tissue attenuation, although infarct as etiology of this finding is also possible Calculated post stress ejection fraction 60%
[2017-07-15] MEDS ORDERED: Xarelto 15mg tab ORAL SCH (18:30)
[2017-07-15 20:00] VITALS: BP 137/98
[2017-07-15] MEDS: HYDROcodone/Acetamin 10/325 tab ORAL PRN (21:31)
[2017-07-15] MEDS: Zolpidem 5mg tab ORAL PRN (23:37)
--- NOTE | 2017-07-15 23:41 | Nephrology Progress Note ---
Assessment/Plan Problem List: (1) Hypertension (2) Chest pain (3) History of pulmonary embolism Plan F/u stress test results Xarelto increased per pulmonary recs. Cardio following. Pending cardiac clearance for d/c planning. Subjective Subjective no sob or chest pain. Had stress test today. . Objective Objective Last 24 Hour Vital Signs Date Time Temp Pulse Resp B/P (MAP) Pulse Ox O2 Delivery O2 Flow Rate FiO2 07/15/17 16:23 127/84 07/15/17 16:00 77 07/15/17 16:00 98.8 82 18 127/84 95 Room Air 98.8 07/15/17 12:00 76 07/15/17 11:26 97.3 60 18 132/100 96 Room Air 97.3 07/15/17 08:00 65 07/15/17 08:00 98.1 80 18 137/98 95 Room Air 98.1 07/15/17 04:31 97.9 07/15/17 00:00 74 Intake and Output 07/14/17 07/15/17 19:00 07:00 Intake Total 232 ml 116 ml Balance 232 ml 116 ml Intake Oral 232 ml 116 ml # Voids 2 2 Laboratory Tests 07/15/17 04:15: Troponin I 0.000 07/15/17 11:44: Troponin I 0.000 07/15/17 19:50: Troponin I 0.000 Height (Feet): 6 Height (Inches): 4.00 Weight (Pounds): 240 General Appearance: no apparent distress Cardiovascular: normal rate, regular rhythm Respiratory/Chest: lungs clear Abdomen: non tender, soft Extremities: non-pitting Neurologic: alert PATRICE VILLEGAS Jul 15, 2017 23:41
--- NOTE | 2017-07-15 23:41 | History and Physical ---
History of Present Illness General Date patient seen: Jul 14, 2017 Reason for Hospitalization: Chest Pain Present Illness HPI This is a very pleasant 56-year-old gentleman, who presented to the ED c/o increasing chest discomfort. The patient suddenly had left-sided chest pain without any trauma. The patient has a history of pulmonary embolism in the past and he is currently taking Xarelto. The pain gets worse with deep inspiration. The patient does report recent travel and has recently been hospitalized. He was admitted for further care. Allergies: Coded Allergies: No Known Allergies (Unverified , 07/04/17) Medication History Miscellaneous Medications Rivaroxaban (Xarelto), 20 MG ORAL, (Reported) Patient History History Provided By: Patient Healthcare decision maker Resuscitation status Chemical (Meds Only) Advanced Directive on File No Past Medical/Surgical History Past Medical/Surgical History: (1) Pulmonary embolism (2) Hypertension Review of Systems All Other Systems: negative except mentioned in HPI Physical Exam General Appearance: WD/WN, no apparent distress HEENT: normocephalic, atraumatic Neck: supple Respiratory/Chest: lungs clear Cardiovascular/Chest: normal rate, regular rhythm Abdomen: non tender, soft Extremities: no edema Neurologic: alert, oriented x 3 Last 24 Hour Vital Signs Date Time Temp Pulse Resp B/P (MAP) Pulse Ox O2 Delivery O2 Flow Rate FiO2 07/15/17 16:23 127/84 07/15/17 16:00 77 07/15/17 16:00 98.8 82 18 127/84 95 Room Air 98.8 07/15/17 12:00 76 07/15/17 11:26 97.3 60 18 132/100 96 Room Air 97.3 07/15/17 08:00 65 07/15/17 08:00 98.1 80 18 137/98 95 Room Air 98.1 07/15/17 04:31 97.9 07/15/17 00:00 74 Intake and Output 07/14/17 07/15/17 19:00 07:00 Intake Total 232 ml 116 ml Balance 232 ml 116 ml Intake Oral 232 ml 116 ml # Voids 2 2 Laboratory Tests Test 07/15/17 04:15 07/15/17 11:44 07/15/17 19:50 Troponin I 0.000 ng/mL (0.000-0.056) 0.000 ng/mL (0.000-0.056) 0.000 ng/mL (0.000-0.056) Height (Feet): 6 Height (Inches): 4.00 Weight (Pounds): 240 Medications Current Medications Medications (Trade) Dose Ordered Sig/Lino Route PRN Reason Start Time Stop Time Status Last Admin Dose Admin Acetaminophen/ Hydrocodone Bitart (Caret 10/325) 1 tab Q4H PRN ORAL Moderate Pain (Pain Scale 4-6) 07/15/17 13:30 07/22/17 13:29 07/15/17 21:31 Clonidine HCl (Catapres tab) 0.2 mg EVERY 2 HOURS PRN ORAL For High Blood Pressure>170 07/14/17 10:45 08/13/17 10:44 07/14/17 21:51 Lisinopril (Zestril) 10 mg DAILY ORAL 07/15/17 16:30 08/14/17 16:29 07/15/17 16:23 Morphine Sulfate (Morphine Sulfate) 2 mg Q4H PRN IVP Severe Pain (Pain Scale 7-10) 07/15/17 13:30 07/22/17 13:29 07/15/17 23:38 Ondansetron HCl (Zofran) 4 mg Q6H PRN IVP Nausea & Vomiting 07/14/17 21:45 08/13/17 21:44 07/14/17 21:43 Regadenoson (Lexiscan) 0.4 mg ONCE PRN IV LEXISCAN 07/14/17 16:30 07/15/17 23:59 Rivaroxaban (Xarelto) 15 mg TWICE A DAY ORAL 07/16/17 09:00 08/15/17 08:59 Zolpidem Tartrate (Ambien) 5 mg HSPRN PRN ORAL Insomnia 07/13/17 22:00 07/20/17 21:59 07/15/17 23:37 Assessment/Plan Problem List: (1) Chest pain ICD Codes: R07.9 - Chest pain, unspecified SNOMED: 50189863 (2) History of pulmonary embolism ICD Codes: Z86.711 - Personal history of pulmonary embolism SNOMED: 853308806 (3) Hypertension ICD Codes: I10 - Essential (primary) hypertension SNOMED: 87041940 Assessment/Plan Cardio eval. Serial troponin. Resume home meds. Echo. PATRICE VILLEGAS Jul 15, 2017 23:41
[2017-07-16] VITALS: BP 131/79
[2017-07-16] MEDS: HYDROcodone/Acetamin 10/325 tab ORAL PRN ×3 (01:36→10:21)
[2017-07-16] MEDS: Morphine Sulfate 4mg/ml Inj IVP PRN ×3 (03:39→13:14)
[2017-07-16 04:00] VITALS: BP 136/97
[2017-07-16 08:00] VITALS: BP 148/99
[2017-07-16] MEDS ORDERED: Xarelto 10mg tab ORAL SCH (09:00)
[2017-07-16] MEDS ORDERED: Xarelto 15mg tab ORAL SCH (09:00)
--- NOTE | 2017-07-16 09:22 | Pulmonology Progress Note ---
Assessment/Plan Assessment/Plan 1. Atypical chest pain. The patient was already ruled out for myocardial infarction. His echocardiogram showed normal left ventricular systolic function and EKG showed no acute ST-T wave abnormality. Plans noted for nuclear stress test for further evaluation and management. 2. History of pulmonary embolism in the past. The chest x-ray showed some atelectasis in the right base. He is on full anticoagulation. 3. Hypertension. The patient is on p.r.n. clonidine. Added lisinopril 10 mg b.i.d. to the medical regimen. CT of the chest was from the last week and showed no evidence of pulmonary embolism and so it was not repeated. The CT also showed a healed rib fracture on the left side. No new recommendations from pulmonary point of view. 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 Subjective Interval Events: None Constitutional: Reports: no symptoms HEENT: Repors: no symptoms Respiratory: Reports: pleuritic pain Cardiovascular: Reports: no symptoms Gastrointestinal/Abdominal: Reports: no symptoms Allergies: Coded Allergies: No Known Allergies (Unverified , 07/04/17) Objective Last 24 Hour Vital Signs Date Time Temp Pulse Resp B/P (MAP) Pulse Ox O2 Delivery O2 Flow Rate FiO2 07/16/17 07:59 97.7 07/16/17 04:00 97.7 78 19 136/97 94 Room Air 97.7 07/16/17 04:00 72 07/16/17 00:00 96.9 100 19 131/79 94 Room Air 96.9 07/16/17 00:00 68 07/15/17 20:00 67 07/15/17 20:00 99.7 89 19 137/98 96 Room Air 99.7 07/15/17 16:23 127/84 07/15/17 16:00 77 07/15/17 16:00 98.8 82 18 127/84 95 Room Air 98.8 07/15/17 12:00 76 07/15/17 11:26 97.3 60 18 132/100 96 Room Air 97.3 Intake and Output 07/15/17 07/16/17 19:00 07:00 Intake Total 360 ml Balance 360 ml Intake Oral 360 ml # Voids 3 1 General Appearance: no acute distress HEENT: normocephalic Respiratory/Chest: chest wall non-tender, lungs clear Cardiovascular: normal peripheral pulses, normal rate Laboratory Tests 07/15/17 11:44: Troponin I 0.000 07/15/17 19:50: Troponin I 0.000 07/16/17 04:05: Troponin I 0.000 Current Medications Medications (Trade) Dose Ordered Sig/Lino Route PRN Reason Start Time Stop Time Status Last Admin Dose Admin Acetaminophen/ Hydrocodone Bitart ([place] 10/325) 1 tab Q4H PRN ORAL Moderate Pain (Pain Scale 4-6) 07/15/17 13:30 07/22/17 13:29 07/16/17 05:40 Clonidine HCl (Catapres tab) 0.2 mg EVERY 2 HOURS PRN ORAL For High Blood Pressure>170 07/14/17 10:45 08/13/17 10:44 07/14/17 21:51 Lisinopril (Zestril) 10 mg DAILY ORAL 07/15/17 16:30 08/14/17 16:29 07/15/17 16:23 Morphine Sulfate (Morphine Sulfate) 2 mg Q4H PRN IVP Severe Pain (Pain Scale 7-10) 07/15/17 13:30 07/22/17 13:29 07/16/17 07:59 Ondansetron HCl (Zofran) 4 mg Q6H PRN IVP Nausea & Vomiting 07/14/17 21:45 08/13/17 21:44 07/14/17 21:43 Rivaroxaban (Xarelto) 15 mg TWICE A DAY ORAL 07/16/17 09:00 08/15/17 08:59 Zolpidem Tartrate (Ambien) 5 mg HSPRN PRN ORAL Insomnia 07/13/17 22:00 07/20/17 21:59 07/15/17 23:37 Marbin Almazan MD Jul 16, 2017 09:22
[2017-07-16 09:28] VITALS: BP 122/98
[2017-07-16] MEDS: Lisinopril 10mg tab ORAL SCH (09:28)
--- NOTE | 2017-07-16 15:16 | Cardiac Electrophysiology PN ---
Assessment/Plan Status Narrative Impression: Nonischemic clinical response to pharmacologic stress, per cardiology report Nonischemic electrocardiographic response to pharmacologic stress, per cardiology report Apparent fixed inferior and inferolateral wall decreased perfusion. Suspect artifactual due to soft tissue attenuation, although infarct as etiology of this finding is also possible Calculated post stress ejection fraction 60% Assessment/Plan 1. Atypical chest pain. The patient was already ruled out for myocardial infarction. His echocardiogram showed normal left ventricular systolic function and EKG showed no acute ST-T wave abnormality. Lexiscan nuclear stress test showed no ischemia. The emergency room physician notes showed that the CT of the chest was from the last week and showed no evidence of pulmonary embolism and so it was not repeated. The CT also showed a healed rib fracture on the left side. 2. History of pulmonary embolism in the past. On Xarelto 15 bid 3. Hypertension. On lisinopril 10 mg b.i.d. KRISTEN RN OK to DC Subjective Subjective Had stress test . No SOB or arrhythmias . Objective Last 24 Hour Vital Signs Date Time Temp Pulse Resp B/P (MAP) Pulse Ox O2 Delivery O2 Flow Rate FiO2 07/16/17 12:00 74 07/16/17 12:00 97.9 77 18 96 Room Air 97.9 77 07/16/17 09:28 122/98 07/16/17 08:00 97.2 74 18 148/99 96 Room Air 97.2 74 07/16/17 08:00 81 07/16/17 07:59 97.7 07/16/17 04:00 97.7 78 19 136/97 94 Room Air 97.7 07/16/17 04:00 72 07/16/17 00:00 96.9 100 19 131/79 94 Room Air 96.9 07/16/17 00:00 68 07/15/17 20:00 67 07/15/17 20:00 99.7 89 19 137/98 96 Room Air 99.7 07/15/17 16:23 127/84 07/15/17 16:00 77 07/15/17 16:00 98.8 82 18 127/84 95 Room Air 98.8 Intake and Output 07/15/17 07/16/17 19:00 07:00 Intake Total 360 ml Balance 360 ml Intake Oral 360 ml # Voids 3 1 Laboratory Tests Test 07/15/17 19:50 07/16/17 04:05 07/16/17 11:22 Troponin I 0.000 ng/mL (0.000-0.056) 0.000 ng/mL (0.000-0.056) 0.002 ng/mL (0.000-0.056) Objective HEAD AND NECK: No JVD. LUNGS: Clear. CARDIOVASCULAR: Regular S1 and S2 with no gallop or murmur. ABDOMEN: Soft. EXTREMITIES: No pitting edema. Que Hector MD Jul 16, 2017 15:16
--- NOTE | 2017-07-16 16:16 | Cardiology Report ---
APPROVED REPORT EKG Measurement Heart [id number] Normal sinus rhythm Left axis deviation Abnormal ECG
--- NOTE | 2017-07-16 18:46 | Discharge Summary ---
Discharge Summary Hospital Course Date of Admission Jul 13, 2017 at 14:14 Date of Discharge Jul 16, 2017 at 16:25 Admitting Diagnosis HYPERTENSIVE URGENCY,CHEST PAIN HPI Lobito Jackson is a 56 year old male who was admitted on Jul 13, 2017 at 14 :14 for Hypertensive Urgency,Chest Pain Consultations Cardio - Dr. Hector. Pulm - Dr. Almazan. Procedures Stress test - See report. Hospital Course Serial troponin was negative and acute NV was ruled out. Echocardiogram showed EF of 60-65%. Nuclear stress test was nonischemic. His Xarelto was increased by pulmonary to 15 mg po bid. He was then cleared for discharge. He remained hemodynamically stable. Discharge Condition Upon Discharge: stable Discharge Disposition Patient was discharged to Home (01) Discharge Diagnoses: (1) Hypertension (2) Chest pain (3) History of pulmonary embolism PATRICE VILLEGAS Jul 16, 2017 18:46
--- NOTE | 2017-07-17 19:20 | Cardiology Report ---
APPROVED REPORT EKG Measurement Heart [id number] Sinus tachycardia Left axis deviation Possible Lateral infarct, age undetermined Abnormal ECG
--- NOTE | 2017-07-18 08:52 | Diagnostic Imaging Report ---
APPROVED REPORT CPT Code: 29632 Present Symptoms Pulmonary Embolism Past History DVT : RIGHT LEG: Venous imaging reveals acute non-occlusive thrombus in the common femoral to proximal superficial femoral veins. Remainder of the deep venous system within normal limits. No evidence of thrombus in the popliteal and calf veins. Greater saphenous vein also within normal limits. LEFT LEG: Venous imaging reveals acute non-occlusive thrombus in the common femoral vein. Remainder of the deep venous system within normal limits. No evidence of thrombus in the proximal superficial femoral, popliteal and calf veins. Greater saphenous vein also within normal limits. ROBBY Abarca was notified of abnormal results at 2100 hours.
--- NOTE | 2017-07-25 09:23 | Physician Query ---
--------- THIS DOCUMENT IS A PERMANENT PART OF THE MEDICAL RECORD --------- PLEASE COMPLETE THE DOCUMENT BEFORE SIGNING Dear Dr. VILLEGAS Date: 07/25/17 Claim Administrator/CDS' Name: DEACON BLANCO, CCS Exercise your independent professional judgment when responding to query. Questions asked do not imply particular answer is desired or expected. We greatly appreciate your clarification on this issue. Clinical Documentation States: H&P STATES:Admitting Diagnosis:HYPERTENSIVE URGENCY,CHEST PAIN This is a very pleasant 56-year-old gentleman, who presented to the ED c/o increasing chest discomfort. The patient suddenly had left-sided chest pain without any trauma. The patient has a history of pulmonary embolism in the past and he is currently taking Xarelto. The pain gets worse with deep inspiration. The patient does report recent travel and has recently been hospitalized. He was admitted for further care. Clinical Findings Show: Consultations Cardio - Dr. Hector. Pulm - Dr. Almazan. Hospital Course: Serial troponin was negative and acute RI was ruled out. Echocardiogram showed EF of 60-65%. Nuclear stress test was nonischemic. His Xarelto was increased by pulmonary to 15 mg po bid. He was then cleared for discharge. He remained hemodynamically stable. Discharge: Condition Upon Discharge: stable Discharge Disposition: Patient was discharged to Home (01) Discharge Diagnoses: (1) Hypertension (2) Chest pain (3) History of pulmonary embolism Please document the suspected etiology of Chest Pain: a.Type: []Cardiac []Non-cardiac []Unspecified b.Etiology - cardiac [] Aortic dissection []Mitral valve prolapsed [] Acute myocardial infarction []Spasm of coronary arteries [] Coronary Artery Disease []Pericarditis c.Etiology - non-cardiac [] Anxiety []Pleurisy [] Cancer []Pneumonia, type [] Costochondritis []Pneumothorax [] GERD/Esophagitis []Pulmonary embolism [] Unable to determine []Other: PATRICE VILLEGAS M.D. DATE & TIME PRERNA
== END 2017-07-16 16:25 | disposition home or self-care (01) | DRG 303 ==
LOC: EMR 13:25 → EDBEDREQ 13:42 → 2E 14:14 → EDBEDREQ 15:57 → 2E 17:32
DX: I25.10 Atherosclerotic heart disease of native coronary artery without angina pectoris (principal); R07.89 Other chest pain; I16.0 Hypertensive urgency; F41.9 Anxiety disorder, unspecified; Z86.718 Personal history of other venous thrombosis and embolism; Z86.711 Personal history of pulmonary embolism; Z79.01 Long term (current) use of anticoagulants
CPT/HCPCS: 36415; 71045; 78452; 80053; 80307; 81003; 82550; 82553; 83690; 83880; 84484; 85025; 85379; 86140; 93005; 93017; 93306; 93970; 99285; J2405; J2785